=== PATIENT | male | born 1990 | race Caucasian/White ===

== ENCOUNTER 2019-04-13 08:31 | Emergency (ER) | payer SELFPAY ==
[2019-04-13 08:45] VITALS: BP 145/86; PULSE 84; RESP 16; TEMP 36.7; O2SAT 97; BMI 30.7
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
[2019-04-13 09:20] VITALS: BP 131/75; PULSE 76; RESP 18; O2SAT 100
--- NOTE | 2019-04-13 09:26 | DI.CT.S_ITS ---
PROCEDURE: CT ABDOMEN PELVIS W CON INDICATIONS: LLQ tenderness, hx perfed appy 2 months ago infx vs. hernia TECHNIQUE: After the administration of intravenous contrast, 5 mm thick sections acquired from the diaphragm to the symphysis. 5 mm coronal and sagittal reformats were acquired. For radiation dose reduction, the following was used: automated exposure control, adjustment of mA and/or kV according to patient size. COMPARISON: None. FINDINGS: Image quality: Excellent. ABDOMEN: Lung bases: Lung bases are clear. Heart size is normal. Solid organs: Liver is normal in size and enhancement. Gallbladder is unremarkable. Biliary system is non dilated. Pancreas enhances normally. Spleen is normal in size and enhancement. No adrenal nodules. Kidneys demonstrate normal size and enhancement, without hydronephrosis. Peritoneum and bowel: Bowel loops demonstrate normal wall thickness and caliber. The appendix is not visualized; however surgical clips are present in the region of the cecum in the lower quadrant suggesting prior appendectomy. No free fluid or air. Nodes and vessels: No retroperitoneal or mesenteric adenopathy by size criteria. Aorta and inferior vena cava are normal in size. Miscellaneous: No ventral hernias. PELVIS: Genitourinary: Bladder wall thickness is normal. Miscellaneous: No inguinal hernias or adenopathy. Bones: No suspicious bony lesions. No vertebral body compression fractures. IMPRESSION: 1. No acute intra-abdominal findings. Patient is status post appendectomy. Dictated by: Nicole Da Silva M.D. on 04/13/2019 at 9:14 Approved by: Nicole Da Silva M.D. on 04/13/2019 at 9:15
[2019-04-13] MEDS: ONDANSETRON 4 MG/2 ML INJ IV ×2 (09:38→10:21)
[2019-04-13] MEDS: KETOROLAC 60 MG/2 ML VIAL 30 MG IV (09:38)
[2019-04-13] MEDS: SODIUM CHLORIDE 0.9% 1,000 ML 1000 ML IV (09:39)
[2019-04-13 09:44] LABS: Add Manual Diff / Slide Review NO; Basophils Absolute Auto 100 /uL (0-100); Basophils Percent Auto 0.5 % (0-2); Eosinophils Absolute Auto 0 /uL (0-450); Eosinophils Percent Auto 0.2 % (2-4); Hematocrit 48.9 % (41-53); Hemoglobin 16.6 g/dL (13.5-17.5); Lymphocytes Absolute Auto 1300 /uL (1100-4500); Lymphocytes Percent Auto 13.1 % (25-40); Mean Corpuscular Hemoglobin 29.8 PG (26-34); Mean Corpuscular Volume 87.6 fL (80-100); Monocytes Absolute Auto 600 /uL (0-900); Monocytes Percent Auto 6.2 % (3-14); Neutrophils Absolute Auto 8200 /uL (1500-7000); Platelet Count 233 X10^3/uL (150-400); Red Blood Cell Count 5.58 X10^6/uL (4.5-5.9); Red Cell Distribution Width 15.5 % (11.6-14.8); White Blood Cell Count 10.2 X10^3/uL (4.5-11.0)
[2019-04-13 10:00] LABS: Alanine Aminotransferase 20 IU/L (21-72); Albumin 5.1 g/dL (3.5-5.0); Albumin Globulin Ratio 1.4 (1.0-2.8); Alkaline Phosphatase 91 U/L (38-126); Aspartate Aminotransferase 34 IU/L (17-59); BUN Creatinine Ratio 11.3 (6-22); Bilirubin Total 0.8 mg/dL (0.2-1.3); Blood Urea Nitrogen 9 mg/dL (9-20); Carbon Dioxide 18 mmol/L (22-32); Chloride 104 mmol/L (98-107); Estimated Glomerular Filt Rate > 60.0 mL/min (>60); Globulin 3.6 g/dL (1.7-4.1); Glucose 109 mg/dL (70-100); HEMOLYSIS < 15 (0-50); Lipase 62 U/L (23-300); Sodium 139 mmol/L (137-145); Total Protein 8.7 g/dL (6.3-8.2)
[2019-04-13 10:54] VITALS: PULSE 84; RESP 21; O2SAT 100
[2019-04-13 11:45] VITALS: BP 143/67; PULSE 87; RESP 20; O2SAT 98
[2019-04-13 11:52] LABS: Bacteria Urine None Seen; Culture Indicated Urine Specimen Cultured; RBC Urine 1-5/HPF (0-5/HPF); WBC Urine None Seen (0-5/HPF)
== END 2019-04-13 11:46 | disposition home or self-care (01) ==
PROVIDERS: Emergency Provider Emergency Medicine
DX: R10.32 Left lower quadrant pain (principal)
CPT/HCPCS: 36591; 74177; 80053; 81003; 81015; 83690; 85025; 87086; 96361; 96374; 96375; 96376; 99283; 99284; J1885; J2405; Q9967

== ENCOUNTER 2019-05-07 15:16 | Emergency (ER) | payer MEDICAID, SELFPAY ==
[2019-05-07 15:37] VITALS: BP 137/88; PULSE 71; RESP 12; TEMP 36.1; O2SAT 100; BMI 24.7
[2019-05-07 17:40] LABS: Prothrombin Time 11.7 SECONDS (10.1-12.7)
[2019-05-07 17:43] LABS: PTT Partial Thromboplastin Tim 30 SECONDS (26.4-36.2)
[2019-05-07 17:46] LABS: Add Manual Diff / Slide Review NO; Basophils Absolute Auto 0 /uL (0-100); Basophils Percent Auto 0.3 % (0-2); Eosinophils Absolute Auto 0 /uL (0-450); Hematocrit 49.8 % (41-53); Hemoglobin 16.9 g/dL (13.5-17.5); Lymphocytes Absolute Auto 1300 /uL (1100-4500); Lymphocytes Percent Auto 11.6 % (25-40); Mean Corpuscular HGB Conc 33.8 % (30-36); Mean Corpuscular Hemoglobin 29.7 PG (26-34); Mean Corpuscular Volume 87.7 fL (80-100); Monocytes Absolute Auto 900 /uL (0-900); Monocytes Percent Auto 8.4 % (3-14); Neutrophils Absolute Auto 8900 /uL (1500-7000); Neutrophils Percent Auto 79.7 % (50-75); Platelet Count 238 X10^3/uL (150-400); Red Blood Cell Count 5.68 X10^6/uL (4.5-5.9); Red Cell Distribution Width 15.5 % (11.6-14.8); White Blood Cell Count 11.1 X10^3/uL (4.5-11.0)
[2019-05-07 17:47] LABS: Alanine Aminotransferase 39 IU/L (21-72); Albumin 5.3 g/dL (3.5-5.0); Albumin Globulin Ratio 1.3 (1.0-2.8); Alkaline Phosphatase 119 U/L (38-126); Aspartate Aminotransferase 53 IU/L (17-59); Bilirubin Total 1.5 mg/dL (0.2-1.3); Blood Urea Nitrogen 9 mg/dL (9-20); Calcium 10.2 mg/dL (8.4-10.2); Carbon Dioxide 32 mmol/L (22-32); Chloride 90 mmol/L (98-107); Estimated Glomerular Filt Rate > 60.0 mL/min (>60); Glucose 120 mg/dL (70-100); HEMOLYSIS < 15 (0-50); Lipase 67 U/L (23-300); Sodium 137 mmol/L (137-145); Total Protein 9.3 g/dL (6.3-8.2)
--- NOTE | 2019-05-07 18:35 | DI.CT.S_ITS ---
PROCEDURE: CT KIDNEY URETER BLADDER (KUB) INDICATIONS: severe L flank / groin pain with hematuria TECHNIQUE: Noncontrast 5 mm thick sections acquired from the diaphragms to the symphysis. 5 mm thick coronal and sagittal reformats were then performed. For radiation dose reduction, the following was used: automated exposure control, adjustment of mA and/or kV according to patient size. COMPARISON: None. FINDINGS: Image quality: Excellent. Lung bases: Lung bases are clear. Heart size is normal. Urinary system: Both kidneys are normal in size. No kidney stones. No hydronephrosis or perinephric fat stranding. Both ureters appear non-dilated throughout their expected courses. Bladder wall thickness is normal; no calcified bladder stones. Other solid organs: Liver is normal in size. Gallbladder is normal in noncontrast appearance. Pancreas is normal in contours. Spleen is normal in size. No adrenal nodules. Peritoneum and bowel: Unenhanced bowel loops demonstrate normal wall thickness and caliber. No free fluid or air. Postsurgical changes from prior appendectomy. Nodes and vessels: No retroperitoneal or mesenteric adenopathy by size criteria. Aorta and inferior vena cava are normal in caliber. Abdominal wall: No ventral hernias. Pelvis: No free pelvic fluid. No inguinal hernias or adenopathy. Bones: No suspicious bony lesions. No vertebral body compression fractures. IMPRESSION: CT abdomen and pelvis without acute abnormalities identified to explain patient's flank pain and hematuria. Status post appendectomy. No CT evidence for obstructive uropathy or urolithiasis. Dictated by: River Alegre M.D. on 05/07/2019 at 19:22 Approved by: River Alegre M.D. on 05/07/2019 at 19:26
--- NOTE | 2019-05-07 18:39 | ED.ABDPAIN ---
HPI - Abdominal Pain General Chief Complaint: Abdominal Pain Stated Complaint: UNABLE TO KEEP ANYTHING DOWN WEAKNESS BLOOD IN URI Time Seen by Provider: 05/07/19 18:12 Source: patient Mode of arrival: ambulatory Limitations: no limitations History of Present Illness HPI narrative: 28M smoker with benign medical history presents with a chief complaints of 12 hours of left flank pain that radiates into his left groin associated with nausea and vomiting as well as hematuria. He states at times his pain is very intense and others is a dull ache. He denies any provocation or palliation of this pain. He denies any change in bowel habits. He is a daily drinker and has been trying to cut back. He denies any injury, recent travel, or exposure to bad food. He states he had his appendix out about a month ago and that he had had some troubles in the aftermath dealing the pain MD complaint: abdominal pain and flank pain Onset (ago): hour(s) Pain Consistency: intermittent Location: L flank Severity: moderate Quality: cramping and aching Radiation: LLQ Relieving factors: nothing Exacerbating factors: nothing Associated symptoms: nausea, vomiting and hematuria Related Data Previous Rx's Medication Instructions Recorded hydrocodone-acetaminophen 1 tab PO Q4-6H PRN #10 tab 05/08/19 ondansetron 4 mg PO TID-QID PRN #10 tab 05/08/19 Allergies Allergy/AdvReac Type Severity Reaction Status Date / Time No Known Drug Allergies Allergy Verified 05/07/19 15:41 Review of Systems Constitutional Denies chills, Denies fever(s), Denies lethargy and Denies weakness Eyes Denies change in vision, Denies eye discharge, Denies irritation and Denies loss of vision ENT Ears, Nose, Mouth, and Throat: Denies change in voice, Denies neck pain and Denies sore throat Cardiovascular Denies chest pain, Denies irregular heart rhythm, Denies lightheadedness, Denies palpitations, Denies dyspnea, Denies dyspnea on exertion and Denies orthopnea Respiratory Denies cough, Denies dyspnea, Denies dyspnea on exertion and Denies wheezing Gastrointestinal Gastrointestinal: Reports abdominal pain, Denies change in bowel habits, Denies diarrhea, Reports nausea and Reports vomiting Genitourinary Reports hematuria, Reports flank pain, Denies urinary incontinence and Denies urinary urgency Musculoskeletal Denies neck pain Integumentary/Breasts Denies pruritus, Denies erythema, Denies rash and Denies wounds Neurologic Denies confusion, Denies loss of vision and Denies weakness Psychiatric Denies anxiety, Denies confusion, Denies depression, Denies homicidal ideation and Denies suicidal ideation Endocrine Denies palpitations Hematologic/Lymphatic Denies easy bruising Allergic/Immunologic Denies wheezing PFSH Surgical History Hx of appendectomy (Chronic) Social History (Updated 04/13/19 @ 11:44 by Annabella Bui DO) Smoking Status: Current every day smoker alcohol intake: current substance use type: does not use and marijuana Social History Smoking Status: Current every day smoker alcohol intake: current substance use type: does not use and marijuana Exam Narrative Exam Narrative: GENERAL: [28] year old patient appears stated age. Well-nourished, well-developed patient, in mild distress, holding an emesis bag, massaging his left flank HEAD: Atraumatic. Normocephalic. EYES: Pupils equal round and reactive. Extraocular motions intact. No scleral icterus. No injection or drainage. ENT: Nose without bleeding, purulent drainage. Throat without erythema, tonsillar hypertrophy or exudate. Airway patent. NECK: Trachea midline. Non tender CARDIOVASCULAR: Regular rate and rhythm without murmurs, gallops, or rubs. RESPIRATORY: Clear to auscultation. Breath sounds equal bilaterally. No wheezes, rales, or rhonchi. GASTROINTESTINAL: Abdomen soft, non-tender, nondistended. EXTREMITIES: No edema or joint tenderness. BACK: Nontender without deformity or crepitance. No flank tenderness. NEURO: AOx3. SKIN: No rash or erythema of visible areas Initial Vital Signs Initial Vital Signs: Vital Signs Temperature 97.0 F L 05/07/19 15:37 Pulse Rate 71 05/07/19 15:37 Respiratory Rate 12 05/07/19 15:37 Blood Pressure 137/88 05/07/19 15:37 Pulse Oximetry 100 05/07/19 15:37 Course Orders Ordered: ED Orders 05/07/19 22:50 CT abdomen pelvis w con Stat Discontinued Medications Hydrocodone Bitart/Acetaminophen (Vicodin Prepack) 1 bottle MISC SEEINSTR ONE Stop: 05/08/19 00:46 Last Admin: 05/08/19 01:10 Dose: 1 bottle Hydromorphone HCl (Dilaudid) 0.5 mg IV NOW ONE Stop: 05/07/19 23:29 Last Admin: 05/07/19 23:33 Dose: 0.5 mg Sodium Chloride (Normal Saline 0.9%) 1,000 mls @ 1,000 mls/hr IV BOLUS ONE Stop: 05/07/19 19:34 Last Infusion: 05/07/19 21:46 Dose: 0 mls/hr Admin: 05/07/19 19:26 Dose: 1,000 mls/hr Ketorolac Tromethamine (Toradol) 15 mg IV NOW ONE Stop: 05/07/19 18:36 Last Admin: 05/07/19 19:26 Dose: 15 mg Ondansetron HCl (Zofran) 4 mg IV Q4HR PRN PRN Reason: Nausea And Vomiting Last Admin: 05/07/19 23:34 Dose: 4 mg Admin: 05/07/19 19:26 Dose: 4 mg Ondansetron HCl (Zofran Odt Prepack) 1 bottle MISC SEEINSTR ONE Stop: 05/08/19 00:46 Last Admin: 05/08/19 01:10 Dose: 1 bottle Reevaluation(s) Reevaluation #1: Patient feeling tremendous improvement after the above-stated therapies Consultations Consultation #1: Called to [facility] urology, we have reviewed the case including history, physical, labs and imaging. They will contact him at home later in the day to arrange for follow-up. Vital Signs - 8 hr 05/08/19 01:14 Pulse Rate 65 Respiratory Rate 14 Blood Pressure 126/80 Pulse Oximetry 98 MDM - Abdominal Pain Lab Data Result diagrams: 05/07/19 17:14 05/07/19 17:14 Lab Results 05/07/19 05/07/19 05/07/19 Range/Units 17:14 17:14 17:14 WBC 11.1 H (4.5-11.0) X10^3/uL RBC 5.68 (4.5-5.9) X10^6/uL Hgb 16.9 (13.5-17.5) g/dL Hct 49.8 (41-53) % MCV 87.7 (80-100) fL MCH 29.7 (26-34) PG MCHC 33.8 (30-36) % RDW 15.5 H (11.6-14.8) % Plt Count 238 (150-400) X10^3/uL Neut % (Auto) 79.7 H (50-75) % Lymph % (Auto) 11.6 L (25-40) % [place] % (Auto) 8.4 (3-14) % Eos % (Auto) 0.0 L (2-4) % Baso % (Auto) 0.3 (0-2) % Neut # (Auto) 8900 H (5362-9260) /uL Lymph # (Auto) 1300 (8648-9464) /uL [place] # (Auto) 900 (0-900) /uL Eos # (Auto) 0 (0-450) /uL Baso # (Auto) 0 (0-100) /uL PT 11.7 (10.1-12.7) SECONDS INR 1.0 (0.9-1.3) APTT 30 (26.4-36.2) SECONDS Sodium 137 (137-145) mmol/L Potassium 4.0 (3.4-5.1) mmol/L Chloride 90 L (98-107) mmol/L Carbon Dioxide 32 (22-32) mmol/L BUN 9 (9-20) mg/dL Creatinine 1.00 (0.66-1.25) mg/dL Estimated GFR > 60.0 (>60) mL/min BUN/Creatinine Ratio 9.0 (6-22) Glucose 120 H (70-100) mg/dL Calcium 10.2 (8.4-10.2) mg/dL Total Bilirubin 1.5 H (0.2-1.3) mg/dL AST 53 (17-59) IU/L ALT 39 (21-72) IU/L Alkaline Phosphatase 119 (38-126) U/L Total Protein 9.3 H (6.3-8.2) g/dL Albumin 5.3 H (3.5-5.0) g/dL Globulin 4.0 (1.7-4.1) g/dL Albumin/Globulin Ratio 1.3 (1.0-2.8) Lipase 67 (23-300) U/L Urine Color Urine Appearance Urine pH (4.5-8.0) Ur Specific [place] (1.000-1.035) Urine Protein (Negative) Urine Glucose (UA) (Negative) g/dL Urine Ketones (NEGATIVE) Urine Occult Blood (Negative) Urine Nitrate (Negative) Urine Bilirubin (NEGATIVE) Urine Ictotest (Negative) Urine Urobilinogen (0.2) E.U./dL Ur Leukocyte Esterase (NEGATIVE) Urine RBC (0-5/HPF) Urine WBC (0-5/HPF) Ur Squamous Epith Cells (0-5/HPF) Ur Transition Epith Cell Ur Renal Epithelial Cell Calcium Oxalate Crystal Uric Acid Crystals Triple Phos Crystals Other Crystals Amorphous Sediment Urine Bacteria (None) Hyaline Casts Granular Casts RBC Casts WBC Casts Other Casts Urine Mucus Urine Trichomonas Urine Yeast Urine Sperm Ur Culture Indicated? Micro UA Comment 05/07/19 05/07/19 Range/Units 20:00 20:00 WBC (4.5-11.0) X10^3/uL RBC (4.5-5.9) X10^6/uL Hgb (13.5-17.5) g/dL Hct (41-53) % MCV (80-100) fL MCH (26-34) PG MCHC (30-36) % RDW (11.6-14.8) % Plt Count (150-400) X10^3/uL Neut % (Auto) (50-75) % Lymph % (Auto) (25-40) % [place] % (Auto) (3-14) % Eos % (Auto) (2-4) % Baso % (Auto) (0-2) % Neut # (Auto) (5487-9188) /uL Lymph # (Auto) (5257-2111) /uL [place] # (Auto) (0-900) /uL Eos # (Auto) (0-450) /uL Baso # (Auto) (0-100) /uL PT (10.1-12.7) SECONDS INR (0.9-1.3) APTT (26.4-36.2) SECONDS Sodium (137-145) mmol/L Potassium (3.4-5.1) mmol/L Chloride (98-107) mmol/L Carbon Dioxide (22-32) mmol/L BUN (9-20) mg/dL Creatinine (0.66-1.25) mg/dL Estimated GFR (>60) mL/min BUN/Creatinine Ratio (6-22) Glucose (70-100) mg/dL Calcium (8.4-10.2) mg/dL Total Bilirubin (0.2-1.3) mg/dL AST (17-59) IU/L ALT (21-72) IU/L Alkaline Phosphatase (38-126) U/L Total Protein (6.3-8.2) g/dL Albumin (3.5-5.0) g/dL Globulin (1.7-4.1) g/dL Albumin/Globulin Ratio (1.0-2.8) Lipase (23-300) U/L Urine Color Red Not Reportable Urine Appearance Other Not Reportable Urine pH 7.5 Not Reportable (4.5-8.0) Ur Specific [place] 1.015 Not Reportable (1.000-1.035) Urine Protein 3+ H Not Reportable (Negative) Urine Glucose (UA) Negative Not Reportable (Negative) g/dL Urine Ketones Trace H Not Reportable (NEGATIVE) Urine Occult Blood 2+ H Not Reportable (Negative) Urine Nitrate Negative Not Reportable (Negative) Urine Bilirubin 1+ H Not Reportable (NEGATIVE) Urine Ictotest Negative (Negative) Urine Urobilinogen 0.2 Not Reportable (0.2) E.U./dL Ur Leukocyte Esterase Negative Not Reportable (NEGATIVE) Urine RBC >100/hpf Not Reportable (0-5/HPF) Urine WBC 1-5/hpf Not Reportable (0-5/HPF) Ur Squamous Epith Cells 0-1 /hpf (0-5/HPF) Ur Transition Epith Cell [employer] Ur Renal Epithelial Cell [employer] Calcium Oxalate Crystal [employer] Uric Acid Crystals [employer] Triple Phos Crystals [employer] Other Crystals [employer] Amorphous Sediment [employer] Urine Bacteria None seen Not Reportable (None) Hyaline Casts [employer] Granular Casts [employer] RBC Casts [employer] WBC Casts [employer] Other Casts [employer] Urine Mucus [employer] Urine Trichomonas [employer] Urine Yeast [employer] Urine Sperm [employer] Ur Culture Indicated? Cult not indicated Culture not indicate Micro UA Comment [employer] Prep[employer] Imaging Data CT scan - abdomen: Radiologist's impression: [address] [address] [address] Scan Report Signed Patient: Clint Lantigua LMR#: [id number] : 1990Acct:[id number] Age/Sex: / MDate of Service: 05/07/19 Loc: ED Accession Number: [id number] Procedure: CT kidney ureter bladder (KUB) Ordering Provider: Benigno Farnk D.O. PROCEDURE: CT KIDNEY URETER BLADDER (KUB) INDICATIONS: severe L flank / groin pain with hematuria TECHNIQUE: Noncontrast 5 mm thick sections acquired from the diaphragms to the symphysis. 5 mm thick coronal and sagittal reformats were then performed. For radiation dose reduction, the following was used: automated exposure control, adjustment of mA and/or kV according to patient size. COMPARISON: None. FINDINGS: Image quality: Excellent. Lung bases: Lung bases are clear. Heart size is normal. Urinary system: Both kidneys are normal in size. No kidney stones. No hydronephrosis or perinephric fat stranding. Both ureters appear non-dilated throughout their expected courses. Bladder wall thickness is normal; no calcified bladder stones. Other solid organs: Liver is normal in size. Gallbladder is normal in noncontrast appearance. Pancreas is normal in contours. Spleen is normal in size. No adrenal nodules. Peritoneum and bowel: Unenhanced bowel loops demonstrate normal wall thickness and caliber. No free fluid or air. Postsurgical changes from prior appendectomy. Nodes and vessels: No retroperitoneal or mesenteric adenopathy by size criteria. Aorta and inferior vena cava are normal in caliber. Abdominal wall: No ventral hernias. Pelvis: No free pelvic fluid. No inguinal hernias or adenopathy. Bones: No suspicious bony lesions. No vertebral body compression fractures. IMPRESSION: CT abdomen and pelvis without acute abnormalities identified to explain patient's flank pain and hematuria. Status post appendectomy. No CT evidence for obstructive uropathy or urolithiasis. Dictated by: River Alegre M.D. on 05/07/2019 at 19:22 Approved by: River Alegre M.D. on 05/07/2019 at 19:26 Discharge Plan Departure Patient Disposition: Home Clinical Impression: Hematuria Qualifiers: Hematuria type: unspecified type Qualified Code(s): R31.9 - Hematuria, unspecified Discharge Date/Time: 05/08/19 01:16 Interventions: ED Discharge Assessment Last Done: 05/08/19 01:14 Instructions: DI for Hematuria Activity Restrictions/Additional Instructions: *You have been diagnosed with [ gross hematuria ] *What to do: *I contacted Urology at [facility] while you were here, they should call you by lunch time tomorrow, if they do not please call the Urology clinic at [phone] *[facility], call for an appointment. Let them know you were seen in the Emergency Department and that we ask that you be seen in follow up *Return to ER if you should have any new, worsening or concerning symptoms q Prescriptions: New hydrocodone-acetaminophen 5-325 mg tablet 1 tab PO Q4-6H PRN (Reason: pain) Qty: 10 RF: 0 ondansetron 4 mg tablet,disintegrating 4 mg PO TID-QID PRN (Reason: nausea and vomiting) Qty: 10 RF: 0 Referrals: Joao Rivera, [Non-Staff] -
[2019-05-07] MEDS: SODIUM CHLORIDE 0.9% 1,000 ML 1000 ML IV (19:26)
[2019-05-07] MEDS: ONDANSETRON 4 MG/2 ML INJ IV ×2 (19:26→23:34)
[2019-05-07] MEDS: KETOROLAC 60 MG/2 ML VIAL 15 MG IV (19:26)
[2019-05-07 20:05] LABS: Bacteria Urine None Seen
[2019-05-07 20:15] VITALS: BP 116/70; PULSE 60; RESP 18; O2SAT 100
[2019-05-07 20:21] LABS: Bilirubin Urine UA 1+ (NEGATIVE); Color Urine UA RED; Glucose Urine UA NEGATIVE (Negative); Ketones Urine UA TRACE (NEGATIVE); Leukocyte Esterase Urine UA NEGATIVE (NEGATIVE); Nitrite Urine UA NEGATIVE (Negative); Occult Blood Urine UA 2+ (Negative); Protein Urine UA 3+ (Negative); Specific Gravity Urine UA 1.015 (1.000-1.035); Urobilinogen Urine UA 0.2 E.U./dL (0.2); pH Urine UA 7.5 (4.5-8.0)
[2019-05-07 20:23] LABS: Appearance Urine UA OTHER
[2019-05-07 20:26] LABS: Culture Indicated Urine Cult Not Indicated; RBC Urine >100/HPF (0-5/HPF); Squamous Epithelial Cell Urine 0-1 /HPF (0-5/HPF); WBC Urine 1-5/HPF (0-5/HPF)
[2019-05-07 20:39] LABS: Ictotest Urine Negative (Negative)
[2019-05-07 21:45] VITALS: BP 125/77; PULSE 64; RESP 17; O2SAT 100
--- NOTE | 2019-05-07 22:50 | DI.CT.S_ITS ---
PROCEDURE: CT ABDOMEN PELVIS W CON INDICATIONS: Hematuria, urology request TECHNIQUE: After the administration of intravenous contrast, 5 mm thick images acquired from the diaphragm to the symphysis pubis after a 10-minute delay. 2 mm thick coronal and sagittal reformats were then performed of the kidneys and ureters. For radiation dose reduction, the following was used: automated exposure control, adjustment of mA and/or kV according to patient size. COMPARISON: [facility], CT, CT KIDNEY URETER BLADDER (KUB), 05/07/2019, 18:51. FINDINGS: Image quality: Excellent. Lung bases: Lung bases are clear. Heart size is normal. Urinary system: Both kidneys are normal in size and enhancement. Contrast-filled renal calyces are normal in morphology. Contrast filled portions of both ureters are normal in caliber. Bladder wall thickness is normal. Solid organs: Liver is normal in size and enhancement. Gallbladder is within normal limits. Biliary system is non dilated. Pancreas enhances normally. Spleen is normal in size and enhancement. No adrenal nodules. Peritoneum and bowel: Bowel loops demonstrate normal wall thickness and caliber. No free fluid or air. Numerous surgical clips noted adjacent to the cecum and right colon related to prior appendectomy. Nodes and vessels: No retroperitoneal or mesenteric adenopathy by size criteria. Aorta and inferior vena cava are normal in size. Abdominal wall: No ventral hernias. Pelvis: No pathologic free pelvic fluid. No inguinal hernias or adenopathy. Bones: No suspicious bony lesions. No vertebral body compression fractures. IMPRESSION: 1. No renal stone or hydronephrosis. 2. No renal mass identified. 3. No filling defect identified in the opacified portions of the genitourinary collecting systems. Please note portions of the ureters or unopacified and small urothelial based lesions in the unopacified portion of the ureters cannot be completely excluded. If there is clinical concern for urothelial pathology, then retrograde imaging should be considered for further evaluation. Dictated by: Giovanna Ellis MD, PhD on 05/08/2019 at 7:20 Approved by: Giovanna Ellis MD, PhD on 05/08/2019 at 7:25
[2019-05-07] MEDS: HYDROMORPHONE 0.5 MG INJ IV (23:33)
[2019-05-08] MEDS: HYDROCODONE/ACET 5/325 PREPACK 1 BOTTLE MISC (01:10)
[2019-05-08] MEDS: ONDANSETRON 4 MG ODT PREPACK 1 BOTTLE MISC (01:10)
[2019-05-08 01:14] VITALS: BP 126/80; PULSE 65; RESP 14; O2SAT 98
== END 2019-05-08 01:16 | disposition home or self-care (01) ==
PROVIDERS: Emergency Medicine; Emergency Provider Emergency Medicine
DX: R31.9 Hematuria, unspecified (principal); R10.9 Unspecified abdominal pain
CPT/HCPCS: 36415; 74176; 74177; 80053; 81001; 83690; 85025; 85610; 85730; 96361; 96374; 96375; 99283; 99285; J1170; J1885; J2405; Q9967

== ENCOUNTER 2021-01-27 07:30 | Emergency (ER) | payer OTHER, MEDICAID, SELFPAY ==
[2021-01-27 07:41] VITALS: BP 144/92; PULSE 98; RESP 18; TEMP 36.8; O2SAT 98; BMI 22.3
--- NOTE | 2021-01-27 07:42 | ED.GENADULT ---
HPI - General Adult General Chief complaint: Nausea/Vomiting/Diarrhea Stated complaint: nausea, dizzy, can't keep anything down 2 days Time Seen by Provider: 01/27/21 07:37 Source: patient Mode of arrival: Ambulatory Limitations: no limitations History of Present Illness HPI narrative: Patient is a 30-year-old otherwise healthy male here for evaluation of 2 day 3 days of feeling very weak and fatigued dizzy and nauseous. He has also had some vomiting. No fevers. No recent travel. No known sick contacts. Has not had any diarrhea. His able to tolerate some fluids by mouth but is still vomiting. No rashes. Has not tried anything for his symptoms prior to arrival Related Data Previous Rx's Medication Instructions Recorded hydrocodone-acetaminophen 1 tab PO Q4-6H PRN #10 tab 05/08/19 ondansetron 4 mg PO TID-QID PRN #10 tab 05/08/19 ondansetron 4 mg PO Q6H PRN #10 tab 01/27/21 Allergies Allergy/AdvReac Type Severity Reaction Status Date / Time sucrose Allergy Verified 01/27/21 07:41 Review of Systems Constitutional Constitutional: Denies chills, Reports fatigue, Denies fever(s), Denies headache(s) and Reports lethargy Eyes Eyes: Denies change in vision ENT Ears, Nose, Mouth, and Throat: Denies headache(s) and Denies sore throat Cardiovascular Cardiovascular: Denies chest pain and Denies dyspnea Respiratory Respiratory: Denies dyspnea Gastrointestinal Gastrointestinal: Reports abdominal pain, Denies diarrhea, Reports nausea and Reports vomiting Genitourinary Genitourinary: Denies dysuria Genitourinary: Denies dysuria Musculoskeletal Musculoskeletal: Denies arthralgias and Denies myalgias Integumentary/Breasts Skin/Breast: Denies rash Neurologic Neurologic: Denies behavioral changes and Denies headache(s) Psychiatric Psychiatric: Denies behavioral changes Endocrine Endocrine: Reports fatigue Hematologic/Lymphatic On Anticoagulants: No Allergic/Immunologic Allergic/Immunologic: Denies urticaria Patient History Medical History Hematuria Surgical History Hx of appendectomy Social History Smoking Status: Current every day smoker alcohol intake: current substance use type: does not use and marijuana Smoking Status: Current every day smoker alcohol intake frequency: a few times a week Substance Use Type: marijuana Exam Initial Vital Signs Initial Vital Signs: Vital Signs Temperature 98.2 F 01/27/21 07:41 Pulse Rate 98 H 01/27/21 07:41 Respiratory Rate 18 01/27/21 07:41 Blood Pressure 144/92 H 01/27/21 07:41 Pulse Oximetry 98 01/27/21 07:41 Const General: cooperative and comfortable Limitations: mental status not altered HENMT Head: normal to inspection and normocephalic Resp Effort & Inspection: normal respiratory effort Auscultation: clear to auscultation bilaterally Cardio Rate: regular rate Rhythm: regular rhythm GI Inspection: non-distended Palpation: soft, No firm and tender (Diffuse) Back/Spine/Pelvis Back: No CVA tenderness Skin Lesions: no lesions Rashes: no rashes Neuro General: patient alert, patient awake and patient oriented x3 Cognition: normal cognition Speech: speech normal Extrem General: normal to inspection and capillary refill normal Psych Appearance: grossly normal and well kempt Scores GCS [place] coma scale eye opening: Spontaneous [place] coma scale verbal response: Orientated [place] coma scale motor response: Obey commands [place] coma scale total score: 15 Course Orders Ordered: ED Orders 01/27/21 07:42 Basic Metabolic Panel Stat Complete Blood Count AUTO DIFF Stat Discontinued Medications Sodium Chloride (Normal Saline 0.9%) 1,000 mls @ 1,000 mls/hr IV BOLUS ONE Stop: 01/27/21 08:42 Last Infusion: 01/27/21 09:04 Dose: 0 mls/hr Documented by: Admin: 01/27/21 08:06 Dose: 1,000 mls/hr Documented by: STARLA Ketorolac Tromethamine (Ketorolac 30 Mg/Ml Vial) 30 mg IV NOW ONE Stop: 01/27/21 07:44 Last Admin: 01/27/21 08:06 Dose: 30 mg Documented by: STARLA Ondansetron HCl (Ondansetron 4 Mg/2 Ml Inj) 4 mg IV NOW ONE Stop: 01/27/21 07:44 Last Admin: 01/27/21 08:06 Dose: 4 mg Documented by: AUPDIKE Vital Signs Vital signs: Vital Signs - 8 hr 01/27/21 07:41 Temperature 98.2 F Pulse Rate 98 H Respiratory Rate 18 Blood Pressure 144/92 H Pulse Oximetry 98 Medical Decision Making Lab Data Lab results reviewed: Yes I reviewed the patient's lab results. Result diagrams: 01/27/21 07:42 01/27/21 07:42 Labs: Lab Results 01/27/21 01/27/21 Range/Units 07:42 07:42 WBC 10.2 (4.5-11.0) X10^3/uL RBC 5.83 (4.5-5.9) X10^6/uL Hgb 17.6 H (13.5-17.5) g/dL Hct 51.8 (41-53) % MCV 88.9 (80-100) fL MCH 30.1 (26-34) PG MCHC 33.9 (30-36) % RDW 14.9 H (11.6-14.8) % Plt Count 205 (150-400) X10^3/uL Neut % (Auto) 71.6 (50-75) % Lymph % (Auto) 24.8 L (25-40) % [place] % (Auto) 3.0 (3-14) % Eos % (Auto) 0.1 L (2-4) % Baso % (Auto) 0.5 (0-2) % Neut # (Auto) 7300 H (8471-9580) /uL Lymph # (Auto) 2500 (0609-9515) /uL [place] # (Auto) 300 (0-900) /uL Eos # (Auto) 0 (0-450) /uL Baso # (Auto) 100 (0-100) /uL Sodium 146 H (137-145) mmol/L Potassium 4.3 (3.4-5.1) mmol/L Chloride 106 (98-107) mmol/L Carbon Dioxide 24 (22-32) mmol/L BUN 8 L (9-20) mg/dL Creatinine 0.82 (0.66-1.25) mg/dL Estimated GFR > 60.0 (>60) mL/min BUN/Creatinine Ratio 9.8 (6-22) Glucose 130 H (70-100) mg/dL Calcium 9.6 (8.4-10.2) mg/dL MDM Narrative Medical decision making narrative: Patient's labs are unremarkable. Is not hypotensive. Not tachycardic. Has tolerating oral intake after medications. Is feeling very fatigued. Feel we should hold on any radiologic studies for now. He has benign abdominal exam. I suspect that the fatigue is secondary to several days of vomiting. He is not having any diarrhea. No indication for antibiotics. He was given return precautions and follow-up instructions. He expressed understanding and agreement. Patient tolerated Zofran in the emergency department without any adverse effects. Discharge Plan Departure Patient Disposition: Home Clinical Impression: Nausea & vomiting Instructions: DI for Nausea -- Child, DI for Vomiting -- Adult Activity Restrictions/Additional Instructions: I recommend that you use the nausea medication as directed. Sometimes this medication does not take the nausea completely away but it should help with any vomiting. You need to increase your fluid intake by drinking small amounts over longer periods of time. You can take Tylenol for any fevers/body aches. Recommend eating a bland diet and advancing it as tolerated. Contact your primary provider for a follow-up. Prescriptions: New ondansetron 4 mg tablet,disintegrating 4 mg PO Q6H PRN (Reason: nausea and vomiting) Qty: 10 RF: 0 No Action hydrocodone-acetaminophen 5-325 mg tablet 1 tab PO Q4-6H PRN (Reason: pain) Qty: 10 RF: 0 ondansetron 4 mg tablet,disintegrating 4 mg PO TID-QID PRN (Reason: nausea and vomiting) Qty: 10 RF: 0
[2021-01-27 07:55] LABS: Add Manual Diff / Slide Review NO; Basophils Absolute Auto 100 /uL (0-100); Basophils Percent Auto 0.5 % (0-2); Eosinophils Absolute Auto 0 /uL (0-450); Eosinophils Percent Auto 0.1 % (2-4); Hematocrit 51.8 % (41-53); Hemoglobin 17.6 g/dL (13.5-17.5); Lymphocytes Absolute Auto 2500 /uL (1100-4500); Lymphocytes Percent Auto 24.8 % (25-40); Mean Corpuscular HGB Conc 33.9 % (30-36); Mean Corpuscular Hemoglobin 30.1 PG (26-34); Mean Corpuscular Volume 88.9 fL (80-100); Monocytes Absolute Auto 300 /uL (0-900); Neutrophils Absolute Auto 7300 /uL (1500-7000); Neutrophils Percent Auto 71.6 % (50-75); Platelet Count 205 X10^3/uL (150-400); Red Blood Cell Count 5.83 X10^6/uL (4.5-5.9); Red Cell Distribution Width 14.9 % (11.6-14.8); White Blood Cell Count 10.2 X10^3/uL (4.5-11.0)
[2021-01-27 08:04] LABS: BUN Creatinine Ratio 9.8 (6-22); Blood Urea Nitrogen 8 mg/dL (9-20); Calcium 9.6 mg/dL (8.4-10.2); Carbon Dioxide 24 mmol/L (22-32); Chloride 106 mmol/L (98-107); Estimated Glomerular Filt Rate > 60.0 mL/min (>60); Glucose 130 mg/dL (70-100); HEMOLYSIS < 15 (0-50); Potassium 4.3 mmol/L (3.4-5.1); Sodium 146 mmol/L (137-145)
[2021-01-27] MEDS: ONDANSETRON 4 MG/2 ML INJ IV (08:06)
[2021-01-27] MEDS: KETOROLAC 30 MG/ML VIAL IV (08:06)
[2021-01-27] MEDS: SODIUM CHLORIDE 0.9% 1,000 ML 1000 ML IV (08:06)
[2021-01-27 09:22] VITALS: BP 123/71; PULSE 84; O2SAT 96
== END 2021-01-27 09:22 | disposition home or self-care (01) ==
LOC: ED 07:59
PROVIDERS: Emergency Provider Emergency Medicine
DX: R11.2 Nausea with vomiting, unspecified (principal); R53.83 Other fatigue; R42 Dizziness and giddiness
CPT/HCPCS: 36415; 80048; 85025; 96361; 96374; 96375; 99284; J1885; J2405

== ENCOUNTER 2021-09-25 02:50 | Emergency (ER) | payer OTHER, MEDICAID, SELFPAY ==
[2021-09-25 02:55] VITALS: BP 151/99; PULSE 120; RESP 24; TEMP 36.2; O2SAT 97; BMI 26.1
[2021-09-25] MEDS: BUPIVACAINE 0.25% (PF) VIAL 5 ML SUBCUT (03:13)
[2021-09-25] MEDS: AMOXICILLIN/CLAV 875/125 MG 1 TAB PO (03:14)
[2021-09-25] MEDS: IBUPROFEN 400 MG TABLET 800 MG PO (03:14)
[2021-09-25] MEDS: TET,DIPH,PERTUSS(ACELL),VAC/PF 0.5 ML SYRINGE IM (03:22)
--- NOTE | 2021-09-25 03:27 | ED_ITS ---
HPI - Dental/Oral General Chief complaint: Dental/Oral Stated complaint: tooth abcess Time Seen by Provider: 09/25/21 02:59 Source: patient Mode of arrival: Ambulatory History of Present Illness HPI Narrative: 30M smoker without any significant chronic medical history presents with a chief complaint of ongoing right lower dental pain with swelling. He states that he cracked his tooth at least a few weeks ago but has had increasing pain and noticed some swelling over the past week or so. He has had no fever or chills and denies any drainage. He denies any difficulty swallowing but states he has significant and increasing pain particularly when eating or drinking. He has had attempts to see the [facility] dentist but they were unable to get him in until sometime next week. Additionally, he complains that he burned himself on the top of his right hand and wants that looked at as well. He has some pain but full range of motion and a scab has formed. He has no surrounding redness or drainage. Related Data Previous Rx's Medication Instructions Recorded hydrocodone 5 mg-acetaminophen 325 1 tab PO Q4-6H PRN #10 tab 05/08/19 mg tablet ondansetron 4 mg disintegrating 4 mg PO TID-QID PRN #10 tab 05/08/19 tablet ondansetron 4 mg disintegrating 4 mg PO Q6H PRN #10 tab 01/27/21 tablet amoxicillin 875 mg-potassium 1 tab PO BID #20 tab 09/25/21 clavulanate 125 mg tablet (Augmentin) ketorolac 10 mg tablet 10 mg PO Q6H PRN #14 tab 09/25/21 Allergies Allergy/AdvReac Type Severity Reaction Status Date / Time sucrose Allergy Verified 01/27/21 07:41 Review of Systems Review of Systems Narrative: GENERAL: Denies chills, fatigue, malaise, fever, sweats. HEENT: See HPI RESPIRATORY: Denies dyspnea, cough, wheezing, hemoptysis, sputum. CARDIOVASCULAR: Denies chest pain, palpitations, orthopnea, edema, GASTROINTESTINAL: Denies nausea, vomiting, abdominal pain, diarrhea, constipation, melena. : Denies dysuria, frequency, incontinence, hematuria, urinary retention. MUSCULOSKELETAL: denies weakness, joint pain, or bony pain SKIN: See HPI NEUROLOGIC: Denies weakness, headache, numbness, change in speech, confusion, seizures, incoordination. PSYCHIATRIC: No concerning psychosocial issues. 12 point review of systems is negative except for those stated above Patient History Medical History Hematuria Surgical History Hx of appendectomy Social History Smoking Status: Current every day smoker alcohol intake: current substance use type: does not use and marijuana Smoking Status: Current every day smoker alcohol intake frequency: a few times a week Alcohol type: hard liquor Substance Use Type: marijuana Exam Narrative Exam Narrative: GENERAL: [30] year old patient appears stated age. Well-developed patient, in mild distress. HEAD: Atraumatic. Normocephalic. EYES: Pupils equal round and reactive. Extraocular motions intact. No scleral icterus. No injection or drainage. ENT: Minimal right-sided mandibular swelling, intraoral exam notes fractured right-sided lower molar with minimal gingival swelling, no palpable or fluctuant mass Nose without bleeding, purulent drainage. Throat without erythema, tonsillar hypertrophy or exudate. Airway patent. NECK: Trachea midline. Non tender CARDIOVASCULAR: Regular rate and rhythm without murmurs, gallops, or rubs. RESPIRATORY: Clear to auscultation. Breath sounds equal bilaterally. No wheezes, rales, or rhonchi. GASTROINTESTINAL: Abdomen soft, non-tender, nondistended. EXTREMITIES: No edema or joint tenderness. BACK: Nontender without deformity or crepitance. No flank tenderness. NEURO: AOx3. SKIN: Small area of scabbing on the dorsum of right hand, proximal to the MCP, approximately 3 x 1 cm with dried scab, no drainage or surrounding erythema, not circumferential, not crossing any joint or limiting range of motion. This is some bacitracin and bandage placed on by nursing. No rash or erythema of visible areas Initial Vital Signs Initial Vital Signs: Vital Signs Temperature 97.2 F L 09/25/21 02:55 Pulse Rate 120 H 09/25/21 02:55 Respiratory Rate 24 09/25/21 02:55 Blood Pressure 151/99 H 09/25/21 02:55 Pulse Oximetry 97 09/25/21 02:55 Procedures Nerve Block Nerve Block 1: Time out performed: Yes Local Anesthetic: bupivacaine 0.25% Amount of anesthesia used (mL): 3 Side: right Intraoral Nerve Block: supraperiosteal Procedure Successful: Yes Patient Tolerated Procedure: Well Course Orders Ordered: Discontinued Medications Amoxicillin/Clavulanate Potassium (Amoxicillin/Clav 875/125 Mg) 1 tab PO NOW ONE Stop: 09/25/21 03:00 Last Admin: 09/25/21 03:14 Dose: 1 tab Documented by: YOSELIN Bupivacaine HCl (Bupivacaine 0.25% (Pf) Vial) 5 ml SUBCUT NOW ONE Stop: 09/25/21 03:00 Last Admin: 09/25/21 03:13 Dose: 5 ml Documented by: YOSELIN Diphtheria/Tetanus/Acell Pertussis (Tet,Diph,Pertuss(Acell),Vac/Pf 0.5 Ml Syringe) 0.5 ml IM .ONCE ONE Stop: 09/25/21 03:18 Last Admin: 09/25/21 03:22 Dose: 0.5 ml Documented by: YOSELIN Ibuprofen (Ibuprofen 400 Mg Tablet) 800 mg PO NOW ONE Stop: 09/25/21 03:00 Last Admin: 09/25/21 03:14 Dose: 800 mg Documented by: YOSELIN Vital Signs Vital signs: Vital Signs - 8 hr 09/25/21 02:55 Temperature 97.2 F L Pulse Rate 120 H Respiratory Rate 24 Blood Pressure 151/99 H Pulse Oximetry 97 Discharge Plan Departure Patient Disposition: Home Clinical Impression: Dental infection, Burn of hand Instructions: DI for [place], Tooth Abscess, DI for Dental Pain Activity Restrictions/Additional Instructions: *You have been diagnosed with [dental fracture with infection and a well healing burn on right hand. ] *What to do: *Please continue to take your regular medications as directed. [ x] New medication prescriptions sent to your pharmacy: [ [facility]] [ ] New medication written as a paper prescription [ ] No new medications given *Please follow up with your primary care provider in 2-3 days, call for an appointment. Let them know you were seen in the Emergency Department and that we ask that you be seen in follow up. We will electronically transmit a record of today's note if your PCP is in our system *If you do not have a primary care provider please contact the [facility] Resource line at [phone]. They will ask some questions about your medical history and help get you set up with a doctor in the community. *Return to Emergency Department if you should have any new, worsening or concerning symptoms, such as [fever greater than 101 F, shaking chills, worsening pain, persistent vomiting or other bothersome symptoms] Prescriptions: New ketorolac 10 mg tablet 10 mg PO Q6H PRN (Reason: pain) Qty: 14 0RF amoxicillin-pot clavulanate [Augmentin] 875-125 mg tablet 1 tab PO BID Qty: 20 0RF No Action ondansetron 4 mg tablet,disintegrating 4 mg PO Q6H PRN (Reason: nausea and vomiting) Qty: 10 0RF hydrocodone-acetaminophen 5-325 mg tablet 1 tab PO Q4-6H PRN (Reason: pain) Qty: 10 0RF ondansetron 4 mg tablet,disintegrating 4 mg PO TID-QID PRN (Reason: nausea and vomiting) Qty: 10 0RF Stand Alone Forms: Work Release Note
== END 2021-09-25 03:47 | disposition home or self-care (01) ==
PROVIDERS: Emergency Provider Emergency Medicine
DX: K04.7 Periapical abscess without sinus (principal); T23.061A Burn of unspecified degree of back of right hand, initial encounter; F17.200 Nicotine dependence, unspecified, uncomplicated; Z23 Encounter for immunization; X08.8XXA Exposure to other specified smoke, fire and flames, initial encounter
CPT/HCPCS: 64450; 90471; 99283; 90715

== ENCOUNTER 2021-09-27 14:42 | Emergency (ER) | payer OTHER, MEDICAID, SELFPAY ==
[2021-09-27 15:02] VITALS: BP 144/87; PULSE 120; RESP 18; TEMP 36.4; O2SAT 96; BMI 25.7
[2021-09-27] MEDS: ONDANSETRON 4 MG/2 ML INJ IV (15:23)
[2021-09-27] MEDS: TRANEXAMIC ACID 1,000 MG VIAL 1000 MG TOP (15:23)
[2021-09-27] MEDS: SODIUM CHLORIDE 0.9% 1,000 ML 1000 ML IV (15:23)
[2021-09-27 15:33] LABS: Add Manual Diff / Slide Review NO; Basophils Absolute Auto 0 /uL (0-100); Basophils Percent Auto 0.3 % (0-2); Eosinophils Absolute Auto 0 /uL (0-450); Eosinophils Percent Auto 0.2 % (2-4); Hematocrit 45.6 % (41-53); Hemoglobin 15.6 g/dL (13.5-17.5); Lymphocytes Absolute Auto 1100 /uL (1100-4500); Lymphocytes Percent Auto 11.8 % (25-40); Mean Corpuscular HGB Conc 34.2 % (30-36); Mean Corpuscular Hemoglobin 30.7 PG (26-34); Mean Corpuscular Volume 89.7 fL (80-100); Monocytes Absolute Auto 500 /uL (0-900); Monocytes Percent Auto 4.7 % (3-14); Neutrophils Absolute Auto 8000 /uL (1500-7000); Platelet Count 156 X10^3/uL (150-400); Red Blood Cell Count 5.09 X10^6/uL (4.5-5.9); Red Cell Distribution Width 14.5 % (11.6-14.8); White Blood Cell Count 9.7 X10^3/uL (4.5-11.0)
[2021-09-27 15:52] LABS: Alanine Aminotransferase 30 IU/L (<50); Albumin Globulin Ratio 1.3 (1.0-2.8); Alkaline Phosphatase 96 U/L (38-126); Aspartate Aminotransferase 55 IU/L (17-59); BUN Creatinine Ratio 12.5 (6-22); Bilirubin Total 0.8 mg/dL (0.2-1.3); Blood Urea Nitrogen 11 mg/dL (9-20); Calcium 9.3 mg/dL (8.4-10.2); Carbon Dioxide 19 mmol/L (22-32); Chloride 107 mmol/L (98-107); Estimated Glomerular Filt Rate > 60.0 mL/min (>60); Globulin 3.9 g/dL (1.7-4.1); Glucose 106 mg/dL (70-100); HEMOLYSIS 39 (0-50); Potassium 4.5 mmol/L (3.4-5.1); Sodium 141 mmol/L (137-145); Total Protein 8.9 g/dL (6.3-8.2)
--- NOTE | 2021-09-27 16:16 | PC.NURSE ---
Patient pressed call light and alerted staff to blood emesis, found patient with blood coming out of his mouth. Notified Dr Wilder who came to assess patient. Gave patient towel to bite down on and apply pressure to area bleeding in mouth. Patient had about 100ml bloody emesis out.
--- NOTE | 2021-09-27 16:28 | ED_ITS ---
HPI - Dental/Oral General Chief complaint: Dental/Oral Stated complaint: Tooth extraction won't stop bleeding Time Seen by Provider: 09/27/21 15:14 Source: patient Mode of arrival: Ambulatory History of Present Illness HPI Narrative: 30-year-old gentleman with an impacted Number 32 wisdom tooth was seen by his dentist this morning with the complex extraction that was impeded by increasing bleeding prior to completion. He was seen in the oral surgery office immediately after that with no bleeding and an appointment for completing the extraction with the oral surgeon was scheduled for tomorrow. In the interval he has had increased bleeding from the flap, and increasing vomiting. He presents to the emergency department with bloody vomitus, bleeding from the wound itself, tachycardic and feeling generally unwell. He describes no fevers, cough, diarrhea, abdominal pain, headache. Related Data Previous Rx's Medication Instructions Recorded hydrocodone 5 mg-acetaminophen 325 1 tab PO Q4-6H PRN #10 tab 05/08/19 mg tablet ondansetron 4 mg disintegrating 4 mg PO TID-QID PRN #10 tab 05/08/19 tablet ondansetron 4 mg disintegrating 4 mg PO Q6H PRN #10 tab 01/27/21 tablet amoxicillin 875 mg-potassium 1 tab PO BID #20 tab 09/25/21 clavulanate 125 mg tablet (Augmentin) ketorolac 10 mg tablet 10 mg PO Q6H PRN #14 tab 09/25/21 Allergies Allergy/AdvReac Type Severity Reaction Status Date / Time sucrose Allergy Verified 01/27/21 07:41 Review of Systems Review of Systems Narrative: Remainder of complete review of systems is otherwise unremarkable except for that included in the HPI. Patient History Medical History Hematuria Surgical History Hx of appendectomy Social History Smoking Status: Current every day smoker alcohol intake: current substance use type: does not use and marijuana Smoking Status: Current every day smoker alcohol intake frequency: a few times a week Alcohol type: hard liquor Substance Use Type: marijuana Exam Narrative Exam Narrative: General: Appears unwell with moderate amount of bleeding from his mouth. He is able to give a complete history. HEENT: Bleeding from the extraction site as well as the flap over tooth number 32. still relatively anesthetized with swelling over the angle of the jaw Neck: No cervical adenopathy, supple Respiratory: Lungs are clear to auscultation, no wheezing no rales no rhonchi. Full and symmetrical air movement Cardiac: Mild tachycardia Regular rate and rhythm no murmurs no bruits Abdomen: Soft, mild epigastric tenderness secondary to vomiting, hyperactive bowel tones, no flank pain Skin: Warm and dry, no rashes Neurologic: Grossly neurologically intact with no obvious asymmetries or abnormalities Extremities: No trauma, well perfused Psych: Cooperative, appropriate insight and affect Initial Vital Signs Initial Vital Signs: Vital Signs Temperature 97.6 F 09/27/21 15:02 Pulse Rate 120 H 09/27/21 15:02 Respiratory Rate 18 09/27/21 15:02 Blood Pressure 144/87 H 09/27/21 15:02 Pulse Oximetry 96 09/27/21 15:02 Course Orders Ordered: ED Orders 09/27/21 15:16 Complete Blood Count AUTO DIFF Stat Comprehensive Metabolic Panel Stat Type and Screen Stat Discontinued Medications Sodium Chloride (Normal Saline 0.9%) 1,000 mls @ 1,000 mls/hr IV BOLUS ONE Stop: 09/27/21 16:17 Last Admin: 09/27/21 15:23 Dose: 1,000 mls/hr Documented by: PRECIOUS Ondansetron HCl (Ondansetron 4 Mg/2 Ml Inj) 4 mg IV NOW ONE Stop: 09/27/21 15:09 Last Admin: 09/27/21 15:23 Dose: 4 mg Documented by: PRECIOUS Tranexamic Acid (Tranexamic Acid 1,000 Mg Vial) 1,000 mg TOP NOW ONE Stop: 09/27/21 15:19 Last Admin: 09/27/21 15:23 Dose: 1,000 mg Documented by: PRECIOUS Vital Signs Vital signs: Vital Signs - 8 hr 09/27/21 15:02 09/27/21 16:29 Temperature 97.6 F Pulse Rate 120 H 99 H Respiratory Rate 18 22 Blood Pressure 144/87 H 148/84 H Pulse Oximetry 96 98 MDM - Dental/Oral Lab Data Result diagrams: 09/27/21 15:16 09/27/21 15:16 Labs: Lab Results 09/27/21 09/27/21 Range/Units 15:16 15:16 WBC 9.7 (4.5-11.0) X10^3/uL RBC 5.09 (4.5-5.9) X10^6/uL Hgb 15.6 (13.5-17.5) g/dL Hct 45.6 (41-53) % MCV 89.7 (80-100) fL MCH 30.7 (26-34) PG MCHC 34.2 (30-36) % RDW 14.5 (11.6-14.8) % Plt Count 156 (150-400) X10^3/uL Neut % (Auto) 83.0 H (50-75) % Lymph % (Auto) 11.8 L (25-40) % [place] % (Auto) 4.7 (3-14) % Eos % (Auto) 0.2 L (2-4) % Baso % (Auto) 0.3 (0-2) % Neut # (Auto) 8000 H (5519-1345) /uL Lymph # (Auto) 1100 (4901-0469) /uL [place] # (Auto) 500 (0-900) /uL Eos # (Auto) 0 (0-450) /uL Baso # (Auto) 0 (0-100) /uL Sodium 141 (137-145) mmol/L Potassium 4.5 (3.4-5.1) mmol/L Chloride 107 (98-107) mmol/L Carbon Dioxide 19 L (22-32) mmol/L BUN 11 (9-20) mg/dL Creatinine 0.88 (0.66-1.25) mg/dL Estimated GFR > 60.0 (>60) mL/min BUN/Creatinine Ratio 12.5 (6-22) Glucose 106 H (70-100) mg/dL Calcium 9.3 (8.4-10.2) mg/dL Total Bilirubin 0.8 (0.2-1.3) mg/dL AST 55 (17-59) IU/L ALT 30 (<50) IU/L Alkaline Phosphatase 96 (38-126) U/L Total Protein 8.9 H (6.3-8.2) g/dL Albumin 5.0 (3.5-5.0) g/dL Globulin 3.9 (1.7-4.1) g/dL Albumin/Globulin Ratio 1.3 (1.0-2.8) MDM Narrative Medical decision making narrative: 30-year-old gentleman with acute bleeding from dental extraction site. It is not arterial but it does continue to lose. I have tried gauze soaked with TXA to see if we can get it to slow enough to get him to his oral surgery appointment already scheduled for tomorrow. But we are making some progress and he was sleeping while receiving some fluid resuscitation and then began having active bleeding while he was asleep. Case is Reviewed with Dr. Dao, oral surgeon, recommended that he return to the Oral surgery office for definitive treatment immediately. Patient understands. Additional gauze is directly placed over the flap with instructions to keep pressure over the area with the gauze over the tender area of tissue not just between his teeth. Patient is accompanied by his father who understands as well and will be driving him to Dr. Dao's office immediately upon ER discharge. Discharge Plan Departure Patient Disposition: Home Clinical Impression: Post-operative hemorrhage Instructions: DI for Dental Pain Activity Restrictions/Additional Instructions: Thank you for coming in today With the flap over that was done to the still heavily bleeding I spoke with Dr. Dao. You need to go directly back to his office and he will do the treatment needed this evening rather than waiting for tomorrow. On the drive over you need to keep the gauze significantly clamped over the area of bleeding, not just between your teeth. He is expecting you at his office immediately Prescriptions: No Action ondansetron 4 mg tablet,disintegrating 4 mg PO Q6H PRN (Reason: nausea and vomiting) Qty: 10 0RF ketorolac 10 mg tablet 10 mg PO Q6H PRN (Reason: pain) Qty: 14 0RF amoxicillin-pot clavulanate [Augmentin] 875-125 mg tablet 1 tab PO BID Qty: 20 0RF hydrocodone-acetaminophen 5-325 mg tablet 1 tab PO Q4-6H PRN (Reason: pain) Qty: 10 0RF ondansetron 4 mg tablet,disintegrating 4 mg PO TID-QID PRN (Reason: nausea and vomiting) Qty: 10 0RF
[2021-09-27 16:29] VITALS: BP 148/84; PULSE 99; RESP 22; O2SAT 98
== END 2021-09-27 16:36 | disposition home or self-care (01) ==
PROVIDERS: Emergency Provider Emergency Medicine
DX: M96.831 Postprocedural hemorrhage of a musculoskeletal structure following other procedure (principal); R11.10 Vomiting, unspecified
CPT/HCPCS: 36415; 80053; 85025; 86850; 86900; 86901; 96361; 96374; 99284; J2405